=== PATIENT | male | born 1995 | race Caucasian/White ===

== ENCOUNTER 2016-07-25 22:31 | Inpatient (IN) | payer SELFPAY ==
--- NOTE | ~2016-07-25 | HP ---
History And Physical [place] [address] [facility] [place]. [address] NAME: SEAN LOZANO : 95 STATUS : ADM IN PAT#: [id number] AGE: 20 ADM/REG DATE : 07/25/16 MR#: [id number] REPORT SERV DATE: 07/26/16 DICTATED BY: MAXX LYNN DATE: 07/26/16 REPORT STATUS : Draft TRANSCRIBED BY: MODL DATE: 07/26/16 DATE OF ADMISSION: 07/25/2016 CHIEF COMPLAINT: A 20-year-old male with history of amphetamine abuse, now presenting with seizure-like episode and evidence of severe lactic acidosis. HISTORY OF PRESENTING ILLNESS: The patient's history was obtained through an interview with the patient and interview with his grandmother, Tamra Saucedo over the phone, coupled with review of [facility] medical records. The patient is a known methamphetamine abuser, he last used about four or five days ago. Both he and his grandmother states that this is the last time he used any kind of drug. But for the last four or five days since abusing amphetamines, the patient has been apparently lying in bed, feeling "sick." He felt so bad that even on the day prior to admission, he had gone to [facility] and the emergency department felt that he was stable and was able to discharge him home. But then this evening, the patient developed a seizure-like episode in which his body became jerking and stiff, although it does not seem that he ever lost consciousness and in fact, he was "hollering out" because of his discomfort and issues. He describes a diffuse headache about a 3/10 severity, but not too severe. No neck stiffness. He describes sharp abdominal discomfort, nonfocal, 8/10 severity. It has been going on and off for several days. No chest pain. The patient does have occasional diarrhea in these last few days, light headedness. Apparently, the grandmother is concerned because he has been having paranoia, may have had some visual and auditory hallucinations as well and confusion and irritability and agitation. REVIEW OF SYSTEMS: Otherwise, a 14-point review of systems was obtained and was negative. PAST MEDICAL HISTORY: Denies any past medical history. PAST SURGICAL HISTORY: Left shoulder dislocation surgery and left calf abscess drainage. ALLERGIES: TRAMADOL. SOCIAL HISTORY: The patient smokes cigarettes. Does not drink alcohol. Abuses History And Physical [address] [place]. [address] NAME: SEAN LOZANO : 95 STATUS : ADM IN PAT#: [id number] AGE: 20 ADM/REG DATE : 07/25/16 MR#: [id number] REPORT SERV DATE: 07/26/16 DICTATED BY: MAXX LYNN DATE: 07/26/16 REPORT STATUS : Draft TRANSCRIBED BY: VENESSA DATE: 07/26/16 methamphetamine and marijuana. Lives in [place], [place]. Lives with his grandmother. He is unemployed. FAMILY HISTORY: Mother and father apparently quite healthy. CURRENT MEDICATIONS: Unknown at this time, but have been requested by Pharmacy. PHYSICAL EXAMINATION: VITAL SIGNS: Temperature 98.1. Pulse 165 initially, but had improved to about 77 by the time of admission into room in the hospital. Blood pressure 160/88. Respiratory rate initially 35, but improved to 22. O2 saturation 99% on room air. GENERAL: An ill-appearing male. When I saw him roll in with EMS crew, he appeared quite distressed and was posturing with spasticity of his extremities and what indeed did appear as if he was having seizure-like activity and contractions of all of his extremities, although he was notably still conscious during all of this, but as I am evaluating now, he is quite calm, restful, peaceful. HEENT: Pupils equal, round, and reactive to light. No conjunctival pallor. No scleral icterus. Nares are patent. Oropharynx is clear of obstruction. Very dry mucous membranes. NECK: Trachea midline. No thyromegaly. LYMPH: No cervical lymphadenopathy. No supraclavicular lymphadenopathy. No inguinal lymphadenopathy. RESPIRATORY: Clear to auscultation at bases. No wheezes, rales, or rhonchi. Normal respiratory effort. CARDIOVASCULAR: Tachycardic. Regular rhythm. No murmurs, rubs, or gallops. No extremity edema is appreciated. ABDOMEN: Completely soft by my examination. No guarding. No rebound. Nondistended. No hepatosplenomegaly. DERMATOLOGICAL: Warm and dry extremities. No pallor. No cyanosis. PSYCHIATRIC: An irritable affect to mood, but despite being lethargic, he is easily aroused and is oriented x3. LABORATORY DATA: White blood cell count 24 with a normal differential, hemoglobin 18, hematocrit 52, platelets 323. Sodium 146, potassium 3.8, chloride 103, bicarbonate 9, BUN 13, creatinine 1.52, glucose 150, CPK 878, troponin negative, lactic acid 19. Liver enzymes within normal limits. Urinalysis negative for infection, but shows 39 hyaline casts. Urine drug screen positive for amphetamines and marijuana. ABG demonstrates pH 7.21, a PaCO2 of 30, a PaO2 of 99, a bicarbonate of 11. STUDIES: 1. Chest x-ray by my own evaluation shows no acute cardiopulmonary process. 2. EKG by my own evaluation shows sinus tachycardia. 3. CT scan of the brain without contrast shows no acute intracranial process. ASSESSMENT AND PLAN: 1. Severe lactic acidosis, but a benign abdominal exam. Place on IV fluids. Provide supportive care. 2. [address] on IV fluids. History And Physical [address] [address] NAME: SEAN LOZANO : 95 STATUS : ADM IN [facility]#: [id number] AGE: 20 ADM/REG DATE : 07/25/16 MR#: [id number] REPORT SERV DATE: 07/26/16 DICTATED BY: MAXX LYNN DATE: 07/26/16 REPORT STATUS : Draft TRANSCRIBED BY: MODKing DATE: 07/26/16 3. Drug abuse. Check urine drug screen with paranoia and hallucinations. We will ask for Psychiatry, Dr. Bernal to consult. 4. Leukocytosis, yet normal differential. Monitor for overt fevers. Negative chest x- ray. Negative urinalysis. 5. Possible seizure. Monitor closely in the IMCU. Obtain neurology consult. I discussed the case with Dr. Hester, critical care physician. KPL/MODL Maxx Lynn M.D. / [id number] CC: Gibson Eric M.D.
--- NOTE | ~2016-07-25 | DS ---
Discharge Summary [facility] [address] [place]. [address] NAME: SEAN LOZANO : 95 STATUS : DIS IN PAT#: [id number] AGE: 20 ADM/REG DATE : 07/25/16 MR#: [id number] REPORT SERV DATE: 07/27/16 DICTATED BY: Gibson ERIC DATE: 07/27/16 REPORT STATUS : Draft TRANSCRIBED BY: VENESSA DATE: 07/27/16 ADMISSION DATE: 07/25/2016 DISCHARGE DATE: ADDENDUM: When the patient was being taken out for discharge he started behaving agitated, saying bizarre things, and as a result was brought back to his room in Intermediate Care. I spoke with Dr. Bernal who was unable to come back on the to re-evaluate the patient. We made the decision for safety to keep him in Intermediate Care overnight for observation. The patient had no further issues overnight and his mental status was normal the next morning. He was seen and evaluated by Dr. Bernal on the who felt like the patient was safe for discharge home. The patient does have numbers for [facility] and we strongly encouraged him to call to seek rehabilitation for his polysubstance abuse. The patient will now be discharged in the care of his family in stable condition. Further recommendations pending outpatient followup with his primary care provider. JOHAN/VENESSA Gibson Eric M.D. / [id number] CC: Gibson Eric M.D.
--- NOTE | ~2016-07-25 | CN ---
Consultation Report [facility] [address] [place]. [address] NAME: SEAN LOZANO : 95 STATUS : ADM IN PAT#: [id number] AGE: 20 ADM/REG DATE : 07/25/16 MR#: [id number] REPORT SERV DATE: 07/26/16 DICTATED BY: LELE HAINES DATE: 07/26/16 REPORT STATUS : Draft TRANSCRIBED BY: VENESSA DATE: 07/26/16 PSYCHIATRIC CONSULTATION DATE OF CONSULTATION: 07/26/2016 I reviewed this patient's medical record. I placed a telephone call to his grandmother to corroborate the history, but I got no reply. HISTORY OF PRESENT ILLNESS: He was admitted with recurring muscle spasms, rule out seizure disorder. I was consulted to address "paranoia." PAST PSYCHIATRIC HISTORY: He denies any psychiatric intervention other than he was sent to see a mental health professional when he was in his preteens. He did not remember the circumstances and issues at that time. About eight months ago, he began to abuse Adderall and later methamphetamine. A friend who was prescribed Adderall introduced him to amphetamines. He said he quit abusing about six days ago. He said part of the reason for quitting was the experience of his having a life-threatening illness when he was high on drugs. This was a very unpleasant experience of his imminent demise. SOCIAL HISTORY: He was raised by his grandmother. He still lives with her. He reported that his parents were not involved in his life. 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 MENTAL STATUS: He was awake and alert. He was cooperative in attitude. He made good eye contact. He expressed a determination to avoid amphetamines in the future. His mood was anxious. His affect was appropriate. His thinking was logical. He had no delusions. He had no hallucinations. He was oriented to "July"-"2016"-"[facility]." DIAGNOSIS: Amphetamine abuse and dependence, in the short-term remission. RECOMMENDATIONS: He rejected a referral for drug rehabilitation or counseling. He said he felt certain that he will not return to using amphetamines. I will sign off. SYLWIA/VENESSA Lele Haines M.D. / [id number] CC: Gibson Eric M.D. Consultation Report [address] [address] NAME: BLAKESEAN TUCKER CICI : 95 STATUS : ADM IN PAT#: [id number] AGE: 20 ADM/REG DATE : 07/25/16 MR#: [id number] REPORT SERV DATE: 07/26/16 DICTATED BY: LELE HAINES DATE: 07/26/16 REPORT STATUS : Draft TRANSCRIBED BY: VENESSA DATE: 07/26/16 NO PCP
--- NOTE | ~2016-07-25 | EHP ---
ER History and Physical [address] [address] NAME: SEAN LOZANO : 95 STATUS : ADM IN [facility]#: [id number] AGE: 20 ADM/REG DATE : 07/25/16 MR#: [id number] REPORT SERV DATE: 07/26/16 DICTATED BY: RENETTA FISHMAN DATE: 07/25/16 REPORT STATUS : Draft TRANSCRIBED BY: MODKing DATE: 07/25/16 CHIEF COMPLAINT: Possible seizure. HISTORY OF PRESENT ILLNESS: This is a 20-year-old female, who was picked up by paramedics when they received a call from either his grandmother or his mother that he was possibly having a seizure. When the medics arrived on scene, the young man was able to talk with them but he was having what they called full-body tightening and some posturing. He maintained consciousness throughout the entire trip, but continued to have these tetany type to tonic type motions of his extremities. He had some foaming at the mouth per EMS. The history is that apparently the patient says this has been going on for three weeks, for most of the day. He did recently get out of the hospital after methamphetamine abuse and says he has not had any drugs since that time. He has had shakes. He denied fever. He has chronic left shoulder dislocations and is actually complaining that he has a left shoulder dislocation now. He has nausea, no vomiting. He complains of pain all over. He denies shortness of breath. He does live with his family. He is single. He smoke cigarettes. Denies alcohol and previously stated has past drug abuse, but denies. FAMILY HISTORY: Positive for hypertension. He denies any other medical problems. PHYSICAL EXAMINATION: GENERAL: He is a young well-nourished male in acute distress. He does appear to be in some type of tetany upon my exam with some frothy sputum at his lips, however, he is able to answer appropriately yes and no questions. He knows his name, but seems to be unable to control these "spasms" of his extremities. HEENT: His eyes are pinpoint, but reactive. Mucous membranes as previously noted with frothy white sputum. LUNGS: Respirations are fast. but clear. CARDIAC: He is extremely tachycardic. ABDOMEN: Soft, nontender. He has normal bowel sounds. EXTREMITIES: He is moving all of his extremities, however, seemed to be not of his own volition. They are neurovascularly intact. SKIN: His skin does appear to have some track guzmán in his right AC even though he continues to deny recent drug use. NEURO: He is alert and oriented x3, however, he is unable to participate with a full neurologic exam at this time, but as previously noted he is moving all extremities. He originally received 2 mg of Ativan upon arrival, which seemed to calm him for a moment, but then he went back into the rigid posturing. He has received 10 mg of Haldol and Benadryl 50 mg IV at this time, which is what he received per paperwork from his previous hospital visit, I will fill on the chart with the rest of the findings. At this point, he is stable and his evaluation has just begun. CMR/MODL Renetta Rainey ER History and Physical [address] [address] NAME: SEAN LOZANO : 95 STATUS : ADM IN PAT#: [id number] AGE: 20 ADM/REG DATE : 07/25/16 MR#: [id number] REPORT SERV DATE: 07/26/16 DICTATED BY: RENETTA FISHMAN DATE: 07/25/16 REPORT STATUS : Draft TRANSCRIBED BY: VENESSA DATE: 07/25/16 Rylan Fishman / [id number]
--- NOTE | ~2016-07-25 | DS ---
Discharge Summary [facility] [address] [facility] [place]. [address] NAME: SEAN LOZANO : 89 STATUS : ADM IN [facility]#: [id number] AGE: 20 ADM/REG DATE : 07/25/16 MR#: [id number] REPORT SERV DATE: 07/26/16 DICTATED BY: Gibson ERIC DATE: 07/26/16 REPORT STATUS : Draft TRANSCRIBED BY: MODL DATE: 07/26/16 ADMISSION DATE: 07/25/2016 DISCHARGE DATE: 07/26/2016 DIAGNOSES AT DISCHARGE: Methamphetamine abuse; acute kidney injury, resolved; lactic acidosis, resolved. CONSULTS: Neurology and Psychiatry. PROCEDURES: None. BRIEF SUMMARY: A 20-year-old male patient was admitted in the setting of methamphetamine abuse and marked metabolic acidosis. The patient was placed in the intermediate care with aggressive hydration and supplementation of bicarb. The following morning, the patient was lucid and conversant. He was overall sore, but without complaint. His labs had returned to normal. Seen and evaluated by both Neurology and Psychiatry. Neurology felt that his muscle spasms were no way related to seizure activity and recommended no new therapy. Psychiatry recommended that the patient seek treatment for alcohol and drug-related illness. The patient will be provided the number for [facility] at discharge, and we strongly recommend he call and seek help regarding his drug abuse. Otherwise, he will be discharged in the care of his family in stable condition with the number for [facility] with plans to follow up with his primary care provider. Significant labs at discharge showed a lactate level of 1.7. BUN of 8, creatinine of 0.79, bicarb of 27, potassium of 3.3. Hemoglobin is 11.9. Procalcitonin is normal. [facility]/MODL Gibson Eric M.D. / [id number] CC: Gibson Eric M.D.
[2016-07-25 22:09] LABS: BASOPHILS 0.3 %; BASOPHILS ABSOLUTE 0.08 10/3/uL (0.0-0.16); EOSINOPHILS 2.8 %; EOSINOPHILS ABSOLUTE 0.68 10/3/uL (0.0-0.53); HEMATOCRIT 51.9 % (40.0-51.0); IMMATURE GRANULOCYTES 0.8 %; IMMATURE GRANULOCYTES ABSOLUTE 0.19 10/3/uL (0.0-0.11); LYMPHOCYTES 51.4 %; LYMPHOCYTES ABSOLUTE 12.34 10/3/uL (0.67-4.30); MEAN CORPUS HGB CONC 34.7 g/dL (32.0-36.0); MEAN CORPUSCULAR VOLUME 89.5 fL (80-100); MEAN PLATELET VOLUME 10.1 fL (9.2-13.0); MONOCYTES ABSOLUTE 2.17 10/3/uL (0.21-1.20); NEUTROPHILS 35.7 %; NEUTROPHILS ABSOLUTE 8.57 10/3/uL (2.02-8.40); PLATELET COUNT 323 10/3/uL (150-400); RBC DISTRIBUTION WIDTH 12.7 % (12.0-16.0)
[2016-07-25 22:13] LABS: MANUAL DIFF NO %
[2016-07-25 22:20] LABS: WBC (NOT ORDERED) (RFLEX) 0 (0-5)
[2016-07-25 22:26] LABS: BAND NEUTROPHILS 1 %; EOSINOPHILS 4 %; EOSINOPHILS ABSOLUTE (CALC) 0.96 10/3/uL (0.0-0.53); ER DIFF TAT 0 Hrs 21 Mins; LYMPHOCYTES 45 %; MONOCYTES 8 %; MONOCYTES ABSOLUTE (CALC) 1.92 10/3/uL (0.21-1.20); NEUTROPHILS ABSOLUTE (CALC) 10.32 10/3/uL (2.02-8.40); PLATELET ESTIMATE ADQ (ADEQUATE); RBC MORPHOLOGY NORM (NORMAL); SEGMENTED NEUTROPHIL (0) 42 %; TOTAL NUCLEATED CELLS 100
[2016-07-25 22:32] LABS: ASCORBIC ACID (UR NOT ORDER) NEG (NEG); BILIRUBIN, URINE NEGATIVE (NEG); ER URINALYSIS TAT 0 Hrs 18 Mins; KETONE, URINE NEGATIVE (NEG); LEUKOCYTE ESTERASE(NOT OR NEG (NEG); NITRITE (URINE) NEG (NEG)
[2016-07-25 22:36] LABS: BE (BASE EXCESS) -14.6 MEQ/L (0 +/- 2.5); CARBOXYHEMOGLOBIN 2.2 % (0-3); HCO3 (ACTUAL BICARBONATE) 11.8 MEQ/L (23-27); HEMOBLOGIN CONTENT 14.7 G/DL (14-18); INSTRUMENT SERIAL # 8087; METHEMOGLOBIN 0.4 % (0-3); O2 CONTENT 19.5 VOL% (18-24); PCO2 (CO2 TENSION) 30 MMHG (35-45); PO2 (O2 TENSION) 99 MMHG (79-93); SAMPLE Arterial; pH 7.21 (7.37-7.43)
[2016-07-25 22:40] LABS: A/G RATIO 1.4 (0.7-1.9); ALBUMIN 5.1 G/DL (3.5-5.0); ALKALINE PHOSPHATASE 81 U/L (45-117); BUN (BLOOD UREA NITROGEN) 13 MG/DL (6-23); CALCIUM, SERUM 9.8 MG/DL (8.5-10.4); CHLORIDE, SERUM 103 MMOL/L (96-112); CO2 (CARBON DIOXIDE) 9 MMOL/L (24-34); CPK 878 U/L (0-200); CREATININE 1.52 MG/DL (0.70-1.30); GFR AFRICAN AMERICAN 75 ML/MIN (>=60); GFR NON AFRICAN AMERICAN 65 ML/MIN (>=60); GLOBULIN 3.7 G/DL (2.5-4.1); GLUCOSE, SERUM 150 MG/DL (60-99); POTASSIUM, SERUM 3.8 MMOL/L (3.5-5.3); SALICYLATE 2.3 MG/DL (-); SGOT(AST) 31 U/L (5-40); SGPT(ALT) 25 U/L (5-65); SODIUM, SERUM 146 MMOL/L (135-148); TOTAL BILIRUBIN 0.8 MG/DL (0-1.2); TOTAL PROTEIN 8.8 G/DL (6.0-8.5); TROPONIN I <0.02 NG/ML (<0.05)
[2016-07-25 22:41] LABS: ACETAMINOPHEN LEVEL (TYLENOL) < 2.0 MCG/ML (10.0-20.0); ALCOHOL < 10 MG/DL (0)
[2016-07-26 00:57] LABS: AMPHETAMINES (NOT ORD) POS (NEG); BARBITURATES (NOT ORDERED NEG (NEG); BENZODIAZEPINES (NOT ORD) NEG (NEG); CANNABINOIDS (THC) POS (NEG); COCAINE (NOT ORDERED) NEG (NEG); OPIATES NEG (NEG); PHENCYCLIDINE(PCP) NEG (NEG); TRICYCLICS NEG (NEG)
[2016-07-26 04:48] LABS: INTERNATIONAL NORMAL RATI 1.2 UNITS (-); PARTIAL THROMBO TIME 43.2 SEC (22.5-37.2); PROTIME (NOT ORD) 15.4 SEC (12.0-14.5)
[2016-07-26 05:04] LABS: A/G RATIO 1.5 (0.7-1.9); ALBUMIN 2.7 G/DL (3.5-5.0); ALKALINE PHOSPHATASE 46 U/L (45-117); BUN (BLOOD UREA NITROGEN) 8 MG/DL (6-23); CALCIUM, SERUM 7.6 MG/DL (8.5-10.4); CHLORIDE, SERUM 108 MMOL/L (96-112); CO2 (CARBON DIOXIDE) 27 MMOL/L (24-34); CREATININE 0.79 MG/DL (0.70-1.30); GFR AFRICAN AMERICAN 150 ML/MIN (>=60); GFR NON AFRICAN AMERICAN 129 ML/MIN (>=60); GLOBULIN 1.8 G/DL (2.5-4.1); GLUCOSE, SERUM 97 MG/DL (60-99); POTASSIUM, SERUM 3.3 MMOL/L (3.5-5.3); SGOT(AST) 24 U/L (5-40); SGPT(ALT) 17 U/L (5-65); SODIUM, SERUM 144 MMOL/L (135-148); TOTAL BILIRUBIN 0.2 MG/DL (0-1.2); TOTAL PROTEIN 4.5 G/DL (6.0-8.5); TROPONIN I 0.03 NG/ML (<0.05)
[2016-07-26 05:05] LABS: BASOPHILS 0.2 %; BASOPHILS ABSOLUTE 0.02 10/3/uL (0.0-0.16); EOSINOPHILS 1.1 %; EOSINOPHILS ABSOLUTE 0.13 10/3/uL (0.0-0.53); IMMATURE GRANULOCYTES 0.6 %; IMMATURE GRANULOCYTES ABSOLUTE 0.07 10/3/uL (0.0-0.11); LYMPHOCYTES 24.5 %; LYMPHOCYTES ABSOLUTE 2.84 10/3/uL (0.67-4.30); MEAN CORPUS HGB CONC 36.2 g/dL (32.0-36.0); MEAN CORPUSCULAR HEMOGLOB 30.5 pg (26.0-34.0); MEAN PLATELET VOLUME 9.1 fL (9.2-13.0); MONOCYTES 6.7 %; MONOCYTES ABSOLUTE 0.78 10/3/uL (0.21-1.20); NEUTROPHILS 66.9 %; NEUTROPHILS ABSOLUTE 7.74 10/3/uL (2.02-8.40); RBC DISTRIBUTION WIDTH 12.5 % (12.0-16.0)
[2016-07-26 05:08] LABS: HEMATOCRIT 32.9 % (40.0-51.0); HEMOGLOBIN 11.9 g/dL (13.6-17.8); MANUAL DIFF NO %; MEAN CORPUSCULAR VOLUME 84.4 fL (80-100); PLATELET COUNT 152 10/3/uL (150-400); WHITE BLOOD CELLS 11.6 10/3/uL (4.5-10.5)
[2016-07-26 05:22] LABS: ALLENS TEST Pos; BE (BASE EXCESS) 2.1 MEQ/L (0 +/- 2.5); CARBOXYHEMOGLOBIN 0.7 % (0-3); HCO3 (ACTUAL BICARBONATE) 26.4 MEQ/L (23-27); HEMOBLOGIN CONTENT 12.5 G/DL (14-18); INSTRUMENT SERIAL # 8083; METHEMOGLOBIN 0.3 % (0-3); O2 CONTENT 16.8 VOL% (18-24); PCO2 (CO2 TENSION) 40 MMHG (35-45); PO2 (O2 TENSION) 84 MMHG (79-93); SAMPLE Arterial; pH 7.44 (7.37-7.43)
[2016-07-26 06:37] LABS: PROCALCITONIN <0.05 ng/mL (<0.5)
[2016-07-26 06:57] LABS: PHOSPHORUS, SERUM 3.1 MG/DL (2.5-4.5)
== END 2016-07-27 10:52 | disposition home or self-care (01) | DRG 896 ==
LOC: ER 22:31 → IMCU 23:59
PROVIDERS: Internal Medicine; Specialist
DX: F15.20 Other stimulant dependence, uncomplicated (principal); G92 Toxic encephalopathy; E87.2 Acidosis; M62.82 Rhabdomyolysis
CPT/HCPCS: 36600; 70450; 71010; 80053; 80305; 80307; 81001; 82550; 82805; 83605; 83735; 83930; 84100; 84145; 84443; 84484; 85025; 85610; 85730; 87641; 93005; 96372; 96374; 96375; 99291; A9270-GY; J1200; J1630